=== PATIENT | male | born 1985 | race Caucasian/White ===

== ENCOUNTER 2019-03-29 03:02 | Emergency (ER) | payer SELFPAY ==
[2019-03-29 03:46] LABS: #Basophils 0.1 thou/uL (0.0-0.2); #Eosinphils 0.1 thou/uL (0.0-0.7); #Lymphocytes 1.9 thou/uL (1.20-3.40); #Monocytes 0.6 thou/uL (0.11-0.59); #Neutrophils 5.9 thou/uL (1.40-6.50); %Basophils 1.2 % (0.0-1.0); %Eosinophils 0.6 % (0.0-10.0); %Lymphocytes 21.6 % (21.0-51.0); %Monocytes 7.4 % (0.0-10.0); %Neutrophils 69.1 % (42.0-75.0); Hemoglobin 14.8 g/dL (14.0-18.0); Mean Corpuscular Hemoglobin 29.6 pg (27.0-31.0); Mean Corpuscular Volume 89.7 fL (78.0-98.0); Mean Platelet Volume 8.6 fL (7.4-10.4); Platelet Count 268 thou/uL (130-400); RBC Distribution Width 12.3 % (11.5-14.5); White Blood Cell (WBC) Count 8.6 thou/uL (4.8-10.8)
[2019-03-29 04:04] LABS: Acetaminophen Less than 6.0 mcg/mL (10.0-30.0); Alcohol Less than 10 mg/dL (Less than 10); Salicylate Less than 8.0 mg/dL (15.0-30.0)
[2019-03-29 04:06] LABS: ALT (SGPT) 43 U/L (8-55); AST (SGOT) 31 U/L (5-34); Albumin 4.1 g/dL (3.5-5.0); Alkaline Phosphatase 50 U/L (40-150); Anion Gap 15 mmol/L (10-20); BUN (Urea Nitrogen) 9 mg/dL (8.9-20.6); Bilirubin, Total 0.8 mg/dL (0.2-1.2); CK (CPK) 436 U/L (30-200); Calc. Creatinine Clearance 0 mL/min (70-130); Calcium 9.1 mg/dL (7.8-10.44); Carbon Dioxide 20 mmol/L (22-29); Chloride 109 mmol/L (98-107); Estimated GFR-MDRD 79; Globulin 2.5 g/dL (2.4-3.5); Glucose 100 mg/dL (70-105); Protein, Total 6.6 g/dL (6.0-8.3); Sodium 141 mmol/L (136-145)
[2019-03-29 04:10] LABS: Potassium 2.7 mmol/L (3.5-5.1)
[2019-03-29] MEDS ORDERED: Lorazepam 2 MG/ML VIAL ONE (04:37)
[2019-03-29] MEDS ORDERED: Ketamine 50 MG/ML (10ML VIAL) ONE (04:37)
[2019-03-29] MEDS ORDERED: Potassium Chloride 20 MEQ TAB ONE (04:52)
[2019-03-29] MEDS ORDERED: Midazolam HCl 5 mg/ml Vial ONE (05:08)
[2019-03-29 05:43] LABS: Bilirubin Negative (Negative); Blood, Urine Negative (Negative); Clarity CLEAR (Clear); Glucose, Urine (Dipstick) Negative (Negative); Leukocyte Negative (Negative); Nitrite Negative (Negative); Protein, Urine (Dipstick) Negative (Neg-Trace); Specific Gravity, Urine 1.014 (1.002-1.036)
[2019-03-29 06:00] LABS: Amphetamine Detected (NotDetected); Barbiturates Screen Not Detected (NotDetected); Benzodiazepine Screen Not Detected (NotDetected); Cocaine Metabolite Screen Not Detected (NotDetected); Medtox Control Line Valid? VALID (VALID); Medtox Reader # READER 4; Methadone Not Detected (NotDetected); Methamphetamine Detected (NotDetected); Opiate Screen Not Detected (NotDetected); Oxycodone Screen Not Detected (NotDetected); Phencyclidine (PCP) Not Detected (NotDetected); THC/Cannabinoid Screen Detected (NotDetected); Tricyclic Screen Not Detected (NotDetected)
--- NOTE | 2019-03-29 07:22 | CT ---
CT BRAIN WITHOUT CONTRAST: Date: 03/29/19 INDICATION: Altered mental status. COMPARISON: None. FINDINGS: No acute infarct, hemorrhage, or hydrocephalus is present. The septum pellucidum and third ventricle are midline. The skull and extracranial soft tissues are normal appearing. IMPRESSION: No acute intracranial abnormality. POS: BH
--- NOTE | 2019-03-29 07:28 | CT ---
CT CHEST AND ABDOMEN AND PELVIS WITH IV CONTRAST: Date: 03/29/19 INDICATION: Concern for traumatic incident involving the patient with altered mental status. Patient was admitted ly using methamphetamines and was found covered in pain with no signs of contusions, but had scratche s on right side of body. COMPARISON: None. FINDINGS: The lungs are clear. No pleural effusion or pneumothorax is evident. There is a lobulated hypodense mass-like process involving the anterior mediastinum measuring 3.8 x 2 .7 cm, with internal Hounsfield characteristics of 23. No enlarged lymph nodes are evident. The liver, spleen, pancreas, adrenal glands, and kidneys are normal appearing. Visualized aorta appea rs intact. No free fluid or enlarged lymph nodes are evident. Unopacified large and small bowel are unremarkable. Bladder, rectum, and perirectal soft tissues are unremarkable appearing. No acute osseous abnormality is grossly evident. IMPRESSION: 1. No definite acute traumatic injury involving the chest, abdomen, or pelvis. 2. Lobulated hypodense mass within the anterior mediastinum may reflect loculated superior pericardi al effusion and recess, atypical duplication cyst, residual thymic tissue or thymic mass, such as a t hymoma or thymic cyst. A follow-up CT of the thorax with and without contrast in 6-8 weeks is recomme nded to further characterize this lesion. Entities such as lymphoma and less likely a germ cell tumor cannot be entirely excluded. POS: AL[facility]SS[facility]
[2019-03-29 09:49] LABS: Anion Gap 12 mmol/L (10-20); BUN (Urea Nitrogen) 6 mg/dL (8.9-20.6); Calc. Creatinine Clearance 0 mL/min (70-130); Calcium 8.8 mg/dL (7.8-10.44); Carbon Dioxide 25 mmol/L (22-29); Chloride 108 mmol/L (98-107); Estimated GFR-MDRD Greater than 90; Glucose 99 mg/dL (70-105); Potassium 3.1 mmol/L (3.5-5.1); Sodium 142 mmol/L (136-145)
[2019-03-29] MEDS ORDERED: ISOVUE-370 76%-LOCM 1 ML ONE (10:54)
[2019-03-29] MEDS ORDERED: Lorazepam 1 MG TAB ONE (14:55)
[2019-03-29] MEDS ORDERED: risperiDONE 1 MG TAB ONE (19:11)
[2019-03-30] MEDS ORDERED: OLANZapine 5 MG TAB PO SCH (07:15)
[2019-03-30] MEDS ORDERED: Potassium Chloride 20 MEQ TAB ONE (16:50)
[2019-03-30 17:51] LABS: Anion Gap 15 mmol/L (10-20); BUN (Urea Nitrogen) 5 mg/dL (8.9-20.6); Calc. Creatinine Clearance 0 mL/min (70-130); Calcium 9.7 mg/dL (7.8-10.44); Carbon Dioxide 26 mmol/L (22-29); Chloride 106 mmol/L (98-107); Estimated GFR-MDRD Greater than 90; Glucose 92 mg/dL (70-105); Potassium 3.1 mmol/L (3.5-5.1); Sodium 144 mmol/L (136-145)
== END 2019-03-31 05:00 ==
LOC: EDBD 03:02 → ERS 03:02
DX: F15.10 Other stimulant abuse, uncomplicated (principal); F29 Unspecified psychosis not due to a substance or known physiological condition; E87.6 Hypokalemia; F31.9 Bipolar disorder, unspecified; Z79.899 Other long term (current) drug therapy
CPT/HCPCS: 36415; 70450; 71260; 74177; 80048; 80053; 80306; 80307; 81003; 82550; 84439; 84443; 85025; 93005; 96361; 96374; 96375; J2060; J2250; Q9966